=== PATIENT | female | born 1995 | race Two or more races ===

== ENCOUNTER 2023-08-07 13:08 | Emergency (ER) | payer OTHER ==
[~2023-08-07] VITALS: Ht 170.2 cm; Wt 59.0 kg
[2023-08-07] MEDS ORDERED: INFLUENZA VACCINE 2023-24 0.5 ML DISP.SYRIN IM ONE (14:30)
[2023-08-07] MEDS ORDERED: TDAP [DIPH/PERTUSSIS/TET] 0.5 ML VIAL IM ONE (14:30)
[2023-08-07 15:09] VITALS: BP 113/66; TEMP 99.4; O2SAT 99
== END 2023-08-07 15:09 | disposition home or self-care (01) ==
LOC: ER 13:08
DX: S69.82XA Other specified injuries of left wrist, hand and finger(s), initial encounter (principal); W22.8XXA Striking against or struck by other objects, initial encounter; Y93.89 Activity, other specified; Y92.89 Other specified places as the place of occurrence of the external cause; Y99.8 Other external cause status
CPT/HCPCS: 73130-TC; Q2036